=== PATIENT | female | born 1960 | race Hispanic/Latino ===

== ENCOUNTER 2017-01-31 08:10 | Outpatient (CLI) | payer BC ==
--- NOTE | 2017-01-31 15:10 | Mammography Report ---
BILATERAL DIGITAL SCREENING MAMMOGRAM with CAD: 01/31/17 08:10:00 CLINICAL: Routine screening. COMPARISON:01/24/16 FINDINGS: The breasts are heterogeneously dense, which may obscure small masses. No mass, architectural distortion or suspicious calcifications. IMPRESSION: No mammographic evidence of malignancy. BI-RADS CATEGORY: 1 - - Negative RECOMMENDATION: Routine mammographic screening in one year. COMMENT: Patient follow-up letters are generated by our [employer] application.
== END 2017-01-31 08:11 | disposition home or self-care (01) ==
LOC: SPVWC 08:10
PROVIDERS: ATTEND Internal Medicine
DX: Z12.31 Encounter for screening mammogram for malignant neoplasm of breast (principal)
CPT/HCPCS: 77067; G0202

== ENCOUNTER → 2018-03-03 | Outpatient (CLI) | payer BC ==
--- NOTE | 2018-03-04 11:00 | Mammography Report ---
BILATERAL DIGITAL SCREENING MAMMOGRAM with CAD: 03/03/18 08:05:00 CLINICAL: Routine screening. COMPARISON:01/31/17 FINDINGS: The breasts are heterogeneously dense, which may obscure small masses. No mass, architectural distortion or suspicious calcifications. IMPRESSION: No mammographic evidence of malignancy. BI-RADS CATEGORY: 1 - - Negative RECOMMENDATION: Routine mammographic screening in one year. COMMENT: Patient follow-up letters are generated by our [employer] application.
== END | disposition home or self-care (01) ==
LOC: SPVWC 08:05
PROVIDERS: ATTEND Internal Medicine
DX: Z12.31 Encounter for screening mammogram for malignant neoplasm of breast (principal)
CPT/HCPCS: 77067

== ENCOUNTER 2019-03-09 14:35 | Outpatient (CLI) | payer BC ==
--- NOTE | 2019-03-10 10:05 | Mammography Report ---
BILATERAL DIGITAL SCREENING MAMMOGRAM WITH CAD INDICATION: Screening. COMPARISONS: 03/03/2018 and 01/31/2017 FINDINGS: Craniocaudal and mediolateral oblique views of both breasts were obtained using 2-D digital acquisition. In addition to standard review, the examination was analyzed for possible abnormalities using a computer-assisted detection device (iCAD). The breast tissue is heterogeneously dense, which may obscure small masses. A right upper parenchymal asymmetry on the MLO view requires additional imaging. No architectural dis tortion or suspicious calcifications. The left breast is negative. IMPRESSION: Right asymmetry requiring additional imaging. Recommend recall for right exaggerated CC and spot magn ification MLO views and right breast ultrasound if needed. BI-RADS CATEGORY 0: INCOMPLETE - NEED ADDITIONAL IMAGING EVALUATION AND/OR PRIOR MAMMOGRAMS FOR COMP ARISON Information is entered into a reminder system for a target due date for the next mammogram. The resul ts and recommendations were sent to the patient by mail. Signer Name: Jamshid Mckeon MD Signed: 03/10/2019 10:01 AM Workstation Name: [id number]
== END 2019-03-09 14:36 | disposition home or self-care (01) ==
LOC: SPVWC 14:35
PROVIDERS: ATTEND Internal Medicine
DX: Z12.31 Encounter for screening mammogram for malignant neoplasm of breast (principal)
CPT/HCPCS: 77067

== ENCOUNTER 2020-04-13 14:34 | Outpatient (CLI) | payer BC ==
--- NOTE | 2020-04-14 09:04 | Mammography Report ---
DIGITAL SCREENING MAMMOGRAM WITH CAD, 04/14/2020 INDICATION: Routine screening mammography. TECHNIQUE: Digital bilateral 2D mammography was obtained in the craniocaudal and mediolateral obliq ue projections. This examination was interpreted with the benefit of Computer-Aided Detection analysi s. COMPARISON: Prior mammograms 03/09/2019 and 03/03/2018 FINDINGS: Breast Density: The breasts are heterogeneously dense, which may obscure small masses. There is no evidence of dominant mass, suspicious calcifications or architectural distortion in eithe r breast. There is a stable nodular density seen in the right breast. There has been no significant c hange compared with the prior examinations. IMPRESSION: Follow up recommendation: Routine yearly BI-RADS Category 2: Benign. A "normal" or negative report should not discourage follow up or biopsy of a clinically significant f inding. A written summary of these findings will be mailed to the patient. The patient will be entered into a mammography reporting system which will generate a reminder letter for the patient's next appointmen t at the appropriate interval. The [employer] recommends yearly mammograms starting at age 40 and continuing as l ziyad as a woman is in good health. Breast MRI is recommended for women with an approximate 20-25% or greater lifetime risk of breast cancer, including women with a strong family history of breast or ova marya cancer or who have been treated for Hodgkin's disease. Signer Name: Ignacia Bergeron MD Signed: 04/14/2020 9:00 AM Workstation Name: [id number]
== END 2020-04-13 14:35 | disposition home or self-care (01) ==
LOC: SPVWC 14:34
PROVIDERS: ATTEND Internal Medicine
DX: Z12.31 Encounter for screening mammogram for malignant neoplasm of breast (principal)
CPT/HCPCS: 77067

== ENCOUNTER 2021-09-18 15:01 | Outpatient (CLI) | payer BC ==
--- NOTE | 2021-09-19 17:21 | Mammography Report ---
DIGITAL SCREENING MAMMOGRAM WITH CAD, 09/18/2021 CLINICAL INFORMATION / INDICATION: Routine screening mammography. SCREENING MAMMO Z12.31 TECHNIQUE: Digital bilateral 2D mammography was obtained in the craniocaudal and mediolateral obliqu e projections. This examination was interpreted with the benefit of Computer-Aided Detection analysis . COMPARISON: 04/13/2020, 03/09/2019. FINDINGS: Breast Density: The breasts are heterogeneously dense, which may obscure small masses. No dominant mass, suspicious calcifications, or architectural distortion in the left breast. Possible increasing nodularity upper outer quadrant right breast. IMPRESSION: Possible increasing right breast nodularity. Follow up recommendation: Special View: Spot BI-RADS Category 0: INCOMPLETE. Needs additional imaging evaluation and/or prior mammograms for daren rison. A "normal" or negative report should not discourage follow up or biopsy of a clinically significant f inding. A written summary of these findings will be mailed to the patient. The patient will be entered into a mammography reporting system which will generate a reminder letter for the patient's next appointmen t at the appropriate interval. The [employer] recommends yearly mammograms starting at age 40 and continuing as l ziyad as a woman is in good health. Breast MRI is recommended for women with an approximate 20-25% or greater lifetime risk of breast cancer, including women with a strong family history of breast or ova marya cancer or who have been treated for Hodgkin's disease. Signer Name: Alejandro Ruiz MD Signed: 09/19/2021 5:16 PM Workstation Name: [id number]
== END 2021-09-18 15:02 | disposition home or self-care (01) ==
LOC: SPVWC 15:01
PROVIDERS: ATTEND Internal Medicine
DX: Z12.31 Encounter for screening mammogram for malignant neoplasm of breast (principal); N64.89 Other specified disorders of breast
CPT/HCPCS: 77067

== ENCOUNTER 2021-10-05 09:10 | Outpatient (CLI) | payer BC ==
--- NOTE | 2021-10-05 12:47 | Ultrasound Report ---
RIGHT DIGITAL DIAGNOSTIC MAMMOGRAM WITH CAD 10/05/2021 RIGHT LIMITED BREAST ULTRASOUND INDICATION: Abnormal screening mammogram. Screening recall of the right breast for possible increasin g nodularity. TECHNIQUE: Digital right mammographic imaging was performed. Spot compression views were obtained. L imited ultrasound was performed. This examination was interpreted with the benefit of Computer-Aided Detection (CAD) analysis. COMPARISON: Bilateral mammogram, 09/18/2021, 04/13/2020, 03/09/2019 and 03/03/2018 and 01/31/2017 FINDINGS: Breast Density: The breasts are heterogeneously dense, which may obscure small masses. MAMMOGRAPHIC FINDINGS: Spot compression views demonstrates a stable appearance of upper outer quadran t nodularity when compared to multiple prior mammograms back to 2017. No new or suspicious finding is identified. ULTRASOUND FINDINGS: Targeted ultrasound evaluation was performed of the area of interest. Sonograp hic evaluation of the upper outer right breast demonstrates dense fibroglandular tissue as seen mammo graphically. There is no suspicious solid mass, shadowing or cyst. IMPRESSION: 1. Right breast nodularity as described which appears similar when compared to multiple prior studie s and has the appearance of dense fibroglandular tissue. A six-month follow-up right diagnostic mammo gram to include spot compression views is recommended to confirm continued stability. Follow up recommendation: Short term follow up in 6 months. BI-RADS Category 3: PROBABLY BENIGN. Followup in 6 months. A "normal" or negative report should not discourage follow up or biopsy of a clinically significant f inding. A written summary of these findings will be mailed to the patient. The patient will be entered into a mammography reporting system which will generate a reminder letter for the patient's next appointmen t at the appropriate interval. According to the [employer], yearly mammograms are recommended starting at age 40 and continuing as long as a woman is in good health. Breast MRI is recommended for women with an alejandra roximately 20-25% or greater lifetime risk of breast cancer, including women with a strong family his tory of breast or ovarian cancer and women who have been treated for Hodgkin's disease. Signer Name: Natasha Gomez MD Signed: 10/05/2021 12:43 PM Workstation Name: [email or web address]
== END 2021-10-05 09:11 | disposition home or self-care (01) ==
LOC: MAMMO 09:10
PROVIDERS: ATTEND Internal Medicine
DX: R92.8 Other abnormal and inconclusive findings on diagnostic imaging of breast (principal)

== ENCOUNTER 2022-04-08 08:05 | Outpatient (CLI) | payer BC ==
--- NOTE | 2022-04-08 09:11 | Mammography Report ---
DIGITAL DIAGNOSTIC MAMMOGRAM CONVENTIONAL, 04/08/2022 CLINICAL INFORMATION / INDICATION: Follow-up nodularity TECHNIQUE: Digital right mammographic imaging was performed. Spot compression views were obtained. COMPARISON: 09/18/2021, 04/13/2020 FINDINGS: Breast Density: The breasts are heterogeneously dense, which may obscure small masses. Mild density in the upper right breast is unchanged. IMPRESSION: No mammographic evidence of malignancy. Follow up recommendation: Bilateral routine mammogram in 6 months BI-RADS Category 2: BENIGN. A "normal" or negative report should not discourage follow up or biopsy of a clinically significant f inding. A written summary of these findings will be mailed to the patient. The patient will be entered into a mammography reporting system which will generate a reminder letter for the patient's next appointmen t at the appropriate interval. According to the [employer], yearly mammograms are recommended starting at age 40 and continuing as long as a woman is in good health. Breast MRI is recommended for women with an alejandra roximately 20-25% or greater lifetime risk of breast cancer, including women with a strong family his tory of breast or ovarian cancer and women who have been treated for Hodgkin's disease. Signer Name: Rupert Calzada MD Signed: 04/08/2022 9:07 AM Workstation Name: [id number]
== END 2022-04-08 08:06 | disposition home or self-care (01) ==
LOC: MAMMO 08:05
PROVIDERS: ATTEND Internal Medicine
DX: R92.8 Other abnormal and inconclusive findings on diagnostic imaging of breast (principal)